=== PATIENT | female | born 1965 | race Caucasian/White ===

== ENCOUNTER 2024-02-15 11:40 | Day surgery (SDC) | payer MEDICARE, OTHER ==
[~2024-02-15] VITALS: Ht 160 cm; Wt 98.2 kg
[~2024-02-15 11:40] MED LIST: AMLO1TAB24 PO; BUPR-597 PO; CHLO125TA PO; CLON0.2D6; ERGO500029; FAMO1TAB11 PO; GABA-282 PO; HYDR-3363 PO; LR 1,000 ML IV SCH; NEBI10TA PO; OXCA300T14 PO; PANT40TA29 PO; PERP4TAB30 PO; POTA8CAP10 PO; ROPI3TAB18 PO; TIZA10TA
[2024-02-15] MEDS: TETRACAINE 0.5% OPHTH SOLN 4ML OD SCH (14:23)
[2024-02-15] MEDS: FLURBIPROFEN 0.03% OPHTH SOLN 2.5 ML OD SCH (14:23)
[2024-02-15] MEDS: PHENYLEPHRINE 2.5% OPHTH SOL 2ML OD SCH (14:23)
[2024-02-15] MEDS: ATROPINE SULFATE 1% OPHTH SOLN 2ML BTL OD SCH (14:23)
[2024-02-15] MEDS ORDERED: fentaNYL 100 MCG/2 ML INJECTION As Ordered ONE (15:28)
[2024-02-15] MEDS ORDERED: MIDAZOLAM INJ 2MG/2ML VIAL As Ordered ONE (15:29)
[2024-02-15] MEDS ORDERED: propofoL 200 MG/20 ML VIAL As Ordered ONE (15:53)
[2024-02-15] MEDS: LIDOCAINE 1% SDV 5ML VIAL As Ordered ONE (15:53)
[2024-02-15] MEDS: CEFUROXIME 1MG/0.1ML INTRACAMERAL INJ As Ordered ONE (15:53)
[2024-02-15 16:12] VITALS: BP 150/84; TEMP 98; O2SAT 96
== END 2024-02-15 16:33 | disposition home or self-care (01) ==
LOC: M SDC 11:40
PROVIDERS: ATTEND Ophthalmology
DX: H25.11 Age-related nuclear cataract, right eye (principal); I65.23 Occlusion and stenosis of bilateral carotid arteries; I71.40 Abdominal aortic aneurysm, without rupture, unspecified; Z97.8 Presence of other specified devices; I10 Essential (primary) hypertension; K21.9 Gastro-esophageal reflux disease without esophagitis; F17.218 Nicotine dependence, cigarettes, with other nicotine-induced disorders; Z88.5 Allergy status to narcotic agent; Z88.8 Allergy status to other drugs, medicaments and biological substances; F41.9 Anxiety disorder, unspecified; F32.A Depression, unspecified; F31.9 Bipolar disorder, unspecified; Z79.899 Other long term (current) drug therapy
CPT/HCPCS: 66984; J0697; J2250; J3010; V2632